=== PATIENT | male | born 1980 | race Caucasian/White ===

== ENCOUNTER 2019-11-26 22:18 | Emergency (ER) | payer OTHER ==
[~2019-11-26] VITALS: Ht 175.3 cm; Wt 93.2 kg
[2019-11-26] MEDS ORDERED: OMEP10 PO (22:23)
[2019-11-26] MEDS ORDERED: [UNRECOGNIZED DRUG - CODE] PO (22:23)
[2019-11-26] MEDS ORDERED: MAAL30 PO (22:23)
[2019-11-26] MEDS ORDERED: ONDANSETRON HCL 4 MG/2 ML VIAL IVP ONE (22:45)
[2019-11-26] MEDS ORDERED: SODIUM CHLORIDE 0.9% 1,000 ML IV ONE (22:45)
[2019-11-26] MEDS ORDERED: MORPHINE SULFATE 4 MG/ML SYRINGE IVP ONE (23:15)
[2019-11-26 23:18] LABS: BASOPHILS % (AUTO) 0.6 % (0.0-2.0); EOSINOPHILS % (AUTO) 0 % (1.0-6.0); HEMATOCRIT 47.9 % (41-53); HEMOGLOBIN 16.4 g/dL (13.5-17.5); LYMPHOCYTES # (AUTO) 2.1 K/uL (1.0-4.8); LYMPHOCYTES % (AUTO) 10.4 % (22.0-44.0); MEAN CORPUSCULAR HEMOGLOBIN 30.8 pg (26.0-34.0); MEAN CORPUSCULAR HGB CONC 34.3 G/dL (31.0-37.0); MEAN CORPUSCULAR VOLUME 90 fL (80-100); MONOCYTES # (AUTO) 0.7 K/uL (0.1-1.0); MONOCYTES % (AUTO) 3.3 % (2.0-9.0); NEUTROPHILS # (AUTO) 17.2 K/uL (1.8-7.7); NEUTROPHILS % (AUTO) 85.7 % (40.0-70.0); PLATELET COUNT (AUTO) 241 K/uL (150-450); RED BLOOD CELL COUNT(AUTO) 5.33 MIL/uL (4.50-5.90); RED CELL DISTRIBUTION WIDTH 13.4 % (11.5-14.5)
[2019-11-26] MEDS ORDERED: IOVERSOL 350 MG/ML 100 ML VIAL ONE (23:35)
[2019-11-26] MEDS ORDERED: SODIUM CHLORIDE 0.9% 100 ML ONE (23:35)
[2019-11-26 23:48] LABS: ANION GAP 10 mmol/L (8-16); CARBON DIOXIDE 30 mmol/L (22-29); CHLORIDE 98 mmol/L (98-107); POTASSIUM 3.5 mmol/L (3.5-5.1); SODIUM SERUM 138 mmol/L (136-145)
[2019-11-26 23:49] LABS: CREATININE 1.01 mg/dL (0.60-1.30); GLOMERULAR FILTR. RATE CALC > 60 mL/min (>60); GLUCOSE,RANDOM 133 mg/dL (70-110); UREA NITROGEN, BLOOD 14 mg/dL (7-18)
[2019-11-26 23:50] LABS: ALANINE AMINOTRANSFERASE 67 U/L (12-78); ALKALINE PHOSPHATASE 60 U/L (46-116); ASPARTATE AMINOTRANSFERASE 31 U/L (15-37); BILIRUBIN,TOTAL 0.6 mg/dL (0.1-1.0); CALCIUM, TOTAL 7.9 mg/dL (8.8-10.5)
[2019-11-26 23:51] LABS: ALBUMIN 4.7 g/dL (3.4-5.0)
[2019-11-27 00:01] LABS: LIPASE 15730 U/L (73-393)
[2019-11-27] MEDS ORDERED: MORPHINE SULFATE 4 MG/ML SYRINGE IVP ONE ×2 (00:15→02:00)
[2019-11-27] MEDS ORDERED: PIPERACILLIN/TAZO 3.375 GM/D5W 50 ML IV ONE (00:15)
[2019-11-27] MEDS ORDERED: SODIUM CHLORIDE 0.9% 1,000 ML IV ONE ×2 (00:15→01:45)
[2019-11-27 01:53] LABS: LACTIC ACID 2.2 mmol/L (0.4-2.0)
[2019-11-27] MEDS ORDERED: FAMOTIDINE 10 MG/ML 2 ML VIAL IV ONE (02:00)
[2019-11-27 02:56] LABS: APPEARANCE,URINE CLEAR (CLEAR); BILIRUBIN,URINE NEGATIVE (NEGATIVE); GLUCOSE, URINE (UA) NEGATIVE (NEGATIVE); KETONES,URINE TRACE mg/dL (NEGATIVE); LEUKOCYTE ESTERASE ,URINE NEGATIVE (NEGATIVE); NITRATE,URINE NEGATIVE (NEGATIVE); OCCULT BLOOD,URINE NEGATIVE (NEGATIVE); PH,URINE 5.5 (5.0-8.0); PROTEIN,URINE NEGATIVE (NEGATIVE); UROBILINOGEN,URINE 0.2 mg/dL (<=1.0)
[2019-11-27 03:00] VITALS: BP 134/74
== END 2019-11-27 03:21 | disposition short-term general hospital (02) ==
LOC: EMS 22:23
DX: K85.90 Acute pancreatitis without necrosis or infection, unspecified (principal); K76.0 Fatty (change of) liver, not elsewhere classified; Z79.899 Other long term (current) drug therapy
CPT/HCPCS: 36415; 74177; 80053; 81003; 83605; 83690; 85025; 96361 ×2; 96365; 96375 ×2; 96376; 99285; J2270 ×2; J2405; J2543; J3490; J7030 ×2; J7050; Q9967